=== PATIENT | male | born 1945 | race Caucasian/White ===

== ENCOUNTER → 2021-01-14 | Outpatient (CLI) | payer MEDICARE, OTHER ==
[2021-01-14 11:51] LABS: HCT 46.2 % (39.0-53.0); HGB 15.4 gm/dL (13.0-17.5); MCH 29.8 pg (25.0-35.0); MCHC 33.4 g/dL (31.0-37.0); MCV 89.2 fL (80.0-100.0); Mean Platelet Volume 9.1; Platelet Count 202 k/uL (150-450); RBC 5.17 m/uL (4.30-5.90); RDW 12.7 % (11.5-15.5); WBC 7.6 k/uL (3.8-10.6)
[2021-01-14 12:27] LABS: ALT 19 U/L (4-49); AST 29 U/L (17-59); African American GFR (CKD) >90 (>60 ml/min/1.73 sqM); Albumin 4.5 g/dL (3.5-5.0); Alkaline Phosphatase 105 U/L (38-126); Anion Gap 12 mmol/L; Blood Urea Nitrogen 16 mg/dL (9-20); Calcium 9.8 mg/dL (8.4-10.2); Carbon Dioxide 24 mmol/L (22-30); Chloride 103 mmol/L (98-107); Glucose 103 mg/dL (74-99); Non-African American GFR(CKD) >90 (>60 ml/min/1.73 sqM); Potassium 4.1 mmol/L (3.5-5.1); Sodium 139 mmol/L (137-145); Total Bilirubin 0.8 mg/dL (0.2-1.3); Total Protein 7.8 g/dL (6.3-8.2)
[2021-01-14 12:36] LABS: INR 0.9 (<1.2); Partial Thromboplastin Time 23.3 sec (22.0-30.0); Prothrombin Time 10.2 sec (9.0-12.0)
[2021-01-14 12:38] LABS: Appearance,Urine Clear (Clear); Bilirubin,Urine Negative (Negative); Blood,Urine Negative (Negative); Color,Urine Light Yellow; Glucose,Urine (UA) Negative (Negative); Ketones,Urine Negative (Negative); Leukocyte Esterase,Urine Negative (Negative); Nitrite,Urine Negative (Negative); Protein,Urine Negative (Negative); Specific Gravity,Urine 1.009 (1.001-1.035); Urobilinogen,Urine <2.0 mg/dL (<2.0)
== END | disposition home or self-care (01) ==
LOC: LABPAT 11:04
PROVIDERS: ATTEND Orthopaedic Surgery Sports Medicine
DX: Z01.818 Encounter for other preprocedural examination (principal); M17.12 Unilateral primary osteoarthritis, left knee; I49.1 Atrial premature depolarization
CPT/HCPCS: 80053; 81003; 85027; 85610; 85730; 87070; 93005

== ENCOUNTER 2021-01-22 08:20 | Day surgery (SDC) | payer MEDICARE, OTHER ==
[2021-01-19 15:15] VITALS: BMI 25.0
[~2021-01-22 08:20] MED LIST: ACETAMINOPHEN TAB 500 MG TAB PO PRN; DEXAMETHASONE SOD PHOSPHATE 4 MG/ML 1 ML VIAL IV ONE; GABAPENTIN 300 MG CAP PO PRN; HYDROmorphone 0.5 MG/0.5 ML SYRINGE IVP PRN; MELOXICAM 7.5 MG TAB PO PRN; MIDAZOLAM 2 MG/2 ML VIAL IV PRN; ONDANSETRON 4 MG/2 ML VIAL IVP ONE; ONDANSETRON 4 MG/2 ML VIAL IVP PRN; TRANEXAMIC ACID 1,000 MG in SODIUM CHLORIDE 0.9% 100 ML IVPB PRN
[2021-01-22] MEDS ORDERED: LIDOCAINE 1% (10MG/ML) FOR IV START INTRADERMA ONE (09:11)
[2021-01-22] MEDS: LACTATED RINGERS 1,000 ML IV SCH ×3 (09:11→21:31)
[2021-01-22] MEDS ORDERED: MAGNESIUM HYDROXIDE 2,400 MG/10 ML CUP PO PRN (10:37)
[2021-01-22] MEDS ORDERED: TEMAZEPAM 15 MG CAP PO PRN (10:37)
[2021-01-22] MEDS ORDERED: HYDROmorphone 0.5 MG/0.5 ML SYRINGE IVP PRN (10:37)
[2021-01-22] MEDS ORDERED: traMADol 50 MG TAB PO PRN (10:37)
[2021-01-22] MEDS ORDERED: diazePAM 5 MG TAB PO PRN (10:37)
[2021-01-22] MEDS ORDERED: ACETAMINOPHEN TAB 325 MG TAB PO PRN (10:37)
[2021-01-22] MEDS ORDERED: bisacodyL 10 MG SUPP RECTAL PRN (10:37)
[2021-01-22] MEDS ORDERED: HYDROmorphone 0.2 MG/1 ML SYRINGE IVP PRN (10:37)
[2021-01-22] MEDS ORDERED: NALOXONE 0.4 MG/ML 1 ML VIAL IV PRN (10:37)
[2021-01-22] MEDS ORDERED: NA PHOS,M-B/NA PHOS,DI-BA 133 ML ENEMA RECTAL PRN (10:37)
[2021-01-22] MEDS ORDERED: ONDANSETRON 4 MG/2 ML VIAL IVP PRN (10:37)
[2021-01-22] MEDS ORDERED: HYDROcodone/APAP 5-325MG 1 EACH TAB PO PRN (10:37)
[2021-01-22] MEDS ORDERED: TRANEXAMIC ACID 1,000 MG/10 ML VIAL ONE (10:55)
[2021-01-22] MEDS ORDERED: PROPOFOL 10 MG/ML 20 ML VIAL IV ONE (10:55)
[2021-01-22] MEDS ORDERED: GLYCOPYRROLATE 0.2 MG/ML 2 ML VIAL ONE (10:55)
[2021-01-22] MEDS ORDERED: fentaNYL (PF) 50 MCG/ML 2 ML AMP ONE (10:55)
[2021-01-22] MEDS ORDERED: ROPIVACAINE 5 MG/ML 30 ML VIAL ONE (10:55)
[2021-01-22] MEDS ORDERED: SODIUM CHLORIDE 0.9% 100 ML BAG ONE (10:55)
[2021-01-22] MEDS ORDERED: diphenhydrAMINE 50 MG/ML 1 ML VIAL ONE (10:55)
[2021-01-22] MEDS ORDERED: KETAMINE 10 MG/ML 20 ML VIAL ONE (10:55)
[2021-01-22] MEDS ORDERED: MIDAZOLAM 2 MG/2 ML VIAL ONE (10:55)
[2021-01-22] MEDS ORDERED: ceFAZolin 1,000 MG in SODIUM CHLORIDE 0.9% 1,000 ML IRRIGATION ONE (10:58)
[2021-01-22] MEDS ORDERED: LACTATED RINGERS 1,000 ML IV ONE (12:42)
[2021-01-22] MEDS ORDERED: ROPIVACAINE 0.2%-NS ON-Q PUMP 1,090 MG, EMPTY PAIN BALL 1 EACH MISCELLANE PRN (13:18)
--- NOTE | 2021-01-22 13:37 | P.ANPRN ---
Procedure Note - Anesthesia - Nerve Block Performed Left Adductor Canal Time Out Performed: Yes (:18) Date of Procedure: 01/22/21 Procedure Start Time: Procedure Stop Time: : Location of Patient: PreOp Indication: Acute Post-Operative Pain, Requested by Surgeon (Dr Jay) Sedation Type: Sedate with meaningful contact maintained Preparation: Sterile Prep, Sterile Dressing Position: Supine Catheter: Indwelling Needle Types: Pajunk Needle Gauge: 21 Ultrasound used to visualize needle placement: Yes Ultrasound used to observe medication spread: Yes Injectate: 0.5% Ropivacaine (see comment for volume) (17cc) Blood Aspirated: No Pain Paresthesia on Injection Noted: No Resistance on Injection: Normal Image Stored and Saved: Yes Events: Uneventful and Well Tolerated
--- NOTE | 2021-01-22 13:40 | P.ANPRN ---
Procedure Note - Anesthesia - Nerve Block Performed Left iPack Time Out Performed: Yes Date of Procedure: 01/22/21 Procedure Start Time: 09:34 Procedure Stop Time: 09:46 Location of Patient: PreOp Indication: Acute Post-Operative Pain, Requested by Surgeon (Dr Jay) Sedation Type: Sedate with meaningful contact maintained Preparation: Sterile Prep Position: Supine Catheter: None Needle Types: Pajunk Needle Gauge: 21 Ultrasound used to visualize needle placement: Yes Ultrasound used to observe medication spread: Yes Injectate: 0.5% Ropivacaine (see comment for volume) (15cc) Blood Aspirated: No Pain Paresthesia on Injection Noted: No Resistance on Injection: Normal Image Stored and Saved: Yes Events: Uneventful and Well Tolerated
--- NOTE | 2021-01-22 14:04 | XR ---
EXAMINATION TYPE: XR knee limited LT DATE OF EXAM: 01/22/2021 CLINICAL HISTORY: Postoperative evaluation Two views of the left knee are submitted. Identified are changes of total knee arthroplasty with fem oral and tibial components appearing well seated. Postsurgical soft tissue changes are noted. Align ment is anatomic.
[2021-01-22] MEDS: HYDROmorphone 0.5 MG/0.5 ML SYRINGE IVP PRN ×2 (14:30→17:29)
[2021-01-22] MEDS: HYDROcodone/APAP 10-325MG 1 EACH TAB PO PRN (15:07)
--- NOTE | 2021-01-22 16:48 | OP ---
OPERATIVE REPORT DATE OF PROCEDURE: 01/22/2021. SURGEON: Woody Jay M.D. LEATHER DRIER: Darwin Hicks PA-C. PREOPERATIVE DIAGNOSIS: Left knee osteoarthrosis. POSTOPERATIVE DIAGNOSIS: Left knee osteoarthrosis. OPERATION: Left total knee arthroplasty. ANESTHESIA: Spinal with sedation. ESTIMATED BLOOD LOSS: 100 mL. TOURNIQUET: Tourniquet time was 54 minutes at 250 mmHg. COMPLICATIONS: None apparent. DRAINS: None. DISPOSITION: Post-Anesthesia Care Unit INDICATIONS: Perfecto is a very pleasant 76-year-old male with a longstanding history of left knee pain. History and physical examination are consistent with advanced left knee osteoarthrosis. He has been through significant nonoperative management up to this point. Further treatment options were discussed. He has decided to go forward with left total knee arthroplasty. The risks of the procedure were discussed with him in detail. These risks included but were not limited to risk of infection, nerve damage, bleeding, pain, and a small risk of deep vein thrombosis which could lead to fatal pulmonary embolism. There was also a risk of loosening of the implant which could require revision operation. The patient understands these risks. All of his questions were answered to his satisfaction. Appropriate informed consent was obtained. DESCRIPTION OF THE PROCEDURE: The patient was identified in the preoperative holding area. Surgical site was marked by both the patient and myself. He was given 2 grams of Ancef IV for prophylactic purposes. He was then transferred to the operative suite. He was placed supine on the operating room table. Spinal anesthetic was then administered and dosed per the anesthesia department without apparent complication. Examination under anesthesia was then performed. The patient was 2-3 degrees shy of full extension. He had 100 degrees of flexion, and the medial collateral ligament, lateral collateral ligament and posterior cruciate ligaments were stable. Tourniquet was then placed high on the left upper thigh, well padded in preparation for surgery. The patient's left lower extremity was then prepped and draped in the usual sterile fashion. A standard surgical pause was undertaken to ensure that we were operating on the correct site and that appropriate preoperative antibiotics had been given. All staff in the room were in agreement and we proceeded. The outlines of the patella were marked with a surgical pen. A planned 12 cm vertical incision centered over the patella was marked with a surgical pen. The leg was then exsanguinated with an Esmarch dressing. The knee was then flexed and the tourniquet was inflated to 250 mmHg. The total tourniquet time for the procedure was 54 minutes. Incision was then made with a 10 blade scalpel. Dissection was carried down sharply to the overlying fascia. Great care was taken to minimize the skin flaps. The knee was then exposed using a standard medial parapatellar approach. A small cuff of quadriceps tendon was then left for suturing. He was in quite a bit of varus preoperatively. A standard medial release was then made. The superficial medial collateral ligament was dissected off of the bone around to the posterior aspect of the proximal tibia. The medial meniscus was then excised as well. The lateral meniscus was also released anteriorly. The leg was then externally rotated. The patella was everted. The knee was flexed. Retractors were then placed to protect the collateral ligaments. I then proceeded to remove the infrapatellar fat pad. This was excised sharply tangentially with the fibers of the patellar tendon. I then proceeded to remove the peripheral osteophytes. This was done with a rongeur. I then proceeded with the distal femoral resection. He did have near-full extension. A planned 9 mm resection was then done. The femoral canal was then entered in the midline of the femur approximately 10 mm anterior to the origin of the posterior cruciate ligament. The rudy was then advanced down the center of the femur and placed intramedullary. Based on the preoperative radiographs, the angle between the anatomic and mechanical axis of the femur was approximately 4-5 degrees. The valgus angle of the distal femoral cutting guide was then set at 4 degrees for the left knee. The distal femoral cutting guide was then advanced over the intramedullary rudy. This was seated firmly against the femur. I then, as mentioned, planned to take 9 mm off the distal femur. The cutting block was then secured onto the femur with pins. The jig was then removed, and the distal femoral cut was made through the slot of the block. The pins were then removed and the distal femoral cutting was removed. The accuracy of the distal femoral cuts was checked with 2 flat bars. I then proceeded with femoral sizing. The posterior referencing sizing guide was held firmly against the resected distal surface of the femur. The posterior condyles were resting on the posterior plane of the guide. The sizing guide was then placed onto the anterior femur. The size was measured as a size 9. I then assessed for femoral rotation. The plan was for 3 degrees of external rotation. Three degrees of external rotation was placed onto the jig. These holes were then marked. I then confirmed the rotation by 3 separate methods. This was done using epicondylar axis as well as Whitesides line and posterior referencing. It was deemed that the external rotation was proper. I then went forward with placing the femoral cutting block. This was placed over the previously placed pin holes. The Pastor wing was then placed onto the anterior slots to ensure that we would not notch the anterior femur with the anterior femoral cut. I then proceeded with the anterior femoral cut. This was flush with the anterior cortex of the femur. The posterior cuts were then made followed by the anterior chamfer cut and then the posterior chamfer cut. The cutting block was then removed. Throughout the resection, the collateral ligaments were protected with retractors. I then placed a trial size 9 femur. It fit very nicely medial to lateral and fit flush with the distal end of the femur. The drill holes were then made. I then proceeded with the tibial cut. I planned for a cruciate-retaining knee. The guide was placed and set for varus, valgus, and for slope. The height was set for an approximate 2 mm resection from the medial tibial plateau, which was the lower side. I was happy with the alignment and amount of resection. The cutting block was then pinned to the proximal tibia. The alignment rudy was removed and the proximal tibia was resected with a reciprocating saw. Again this was done with retractors protecting the collateral ligaments as well as the posterior cruciate ligament. I then proceeded to evaluate the flexion and extension gaps. A 10 mm block was then placed. The flexion and extension gaps were equal. I then proceeded with resection of the posterior osteophytes. He had very minimal posterior osteophytes. This was done with a curved osteotome. This resected the posterior osteophytes, and posterior capsule stripping was done off the posterior aspect of the femur at this time. The osteophytes were then removed. I then proceeded with resection of the patella. The thickness of the patella was measured using the caliper. The thickness was 24 mm. The thickness of the anticipated patellar dome was taken into account. Resection was then performed and confirmed to be equal in 4 quadrants using a caliper. Approximately 14 mm of bone remained after the resection. A 32 x 8.5 mm standard patellar trial was then placed. The holes were drilled and the trial was then placed. I then proceeded with sizing the tibial plate. A size F tibial plate fit very nicely. I then placed the trial femur, the tibial tray and the patellar button. A 10 mm trial insert was then also placed. The components fit very nicely. He had full extension and flexion. The extension and flexion gaps were equal and stable to both varus and valgus stress. The patella tracked appropriately. Tibial tray rotation was then marked with a Bovie. This was externally rotated properly. I then proceeded with tibial preparation. First I drilled the femoral holes and removed the femoral component. The tibial tray was then set for proper external rotation as well as mediolateral placement onto the tibia. This was then pinned into place. I then proceeded with punching the keel. I then decided to proceed with cementing of all of our components. The knee was thoroughly irrigated with sterile saline solution via pulse lavage. The lateral geniculate artery was identified and cauterized. All blood was removed from the bone of the tibia, femur and patella with pulse lavage. I then proceeded with cementing. Two packs of antibiotic bone cement were prepared on the back table by the operating room surgical technologist. I then proceeded with cementing of the tibia first. The cement was impacted into the keel as well as deeply seated into the bone. A second coat of cement was then placed. The tibia was then impacted into place. Excess cement was removed with Ivan's and jokers. I then proceeded with cementing of the femoral component. The femoral component was also cemented using standard technique. Excess cement was removed. A 10 mm trial insert was then placed into the knee. It was brought into full extension with a constant axial load placed until the cement had hardened. The patellar component was then cemented. This was held firmly with a compressive device until the cement had dried. When the cement had dried, the knee was taken out of extension. All excess cement was removed from around the prosthesis. I then trialed the knee with a 10 mm insert. Flexion and extension gaps were appropriate. I then trialed with a 12 mm insert. Flexion and extension gaps felt a little better. The knee was stable with a 12 mm insert. It came into full extension. I decided to go forward with a 12 mm medial- congruent, cross-linked, cruciate-retaining tibial insert. Polyethylene was then placed onto the tibial tray and locked into place. The knee was then reduced. The knee was again further irrigated with sterile saline solution with antibiotic added. The tourniquet was then deflated. Total tourniquet time for the procedure was 54 minutes at 250 mmHg. Final components were a Peter Persona size 9 cruciate-retaining femoral component, a size F tibial tray, a 12 mm medial-congruent, cruciate-retaining polyethylene insert, and a 32 x 8.5 mm patella. I then proceeded with closure. Again the knee was thoroughly irrigated. The quadriceps tendon and the medial retinaculum were reapproximated with a #2 Ethibond suture. The extensor mechanism was then closed with a running #2 Quill suture. Subcutaneous tissues were closed with 2-0 Vicryl interrupted suture. The skin was closed with running 3-0 Quill suture. Dermabond was applied to the incision. Sterile compressive dressings were then applied. All sponge and needle counts were deemed correct prior to closure. The patient tolerated the procedure without apparent complication. He was transferred to the recovery room in stable condition. MMODL / IJN: [id number] /
[2021-01-22] MEDS ORDERED: ATORVASTATIN 10 MG TAB PO SCH (21:00)
[2021-01-22] MEDS ORDERED: SENNOSIDES-DOCUSATE SODIUM 1 EACH TAB PO SCH (21:00)
[2021-01-22] MEDS: ASPIRIN 81 MG PO SCH (21:32)
[2021-01-22] MEDS: LIPASE 5,000/PROTEASE 17,000/AMYLASE 24,000 PO SCH (21:33)
[2021-01-22] MEDS: DICYCLOMINE 10 MG CAP PO SCH (21:33)
[2021-01-22] MEDS: BALSALAZIDE DISODIUM 750 MG CAPSULE PO SCH (21:34)
--- NOTE | 2021-01-22 23:42 | P.CONS ---
History of Present Illness - Reason for Consult Consult date: 01/22/21 Medical management Requesting physician: Woody Jay - Chief Complaint Left knee surgery - History of Present Illness This is a pleasant 76-year-old patient who follows with . Chronic stable medical conditions include hyperlipidemia, hypertension, radiation colitis. Patient is undergoing left total knee arthroplasty. Pain control. No nausea vomiting. Did tolerate some supper. No chest pain or shortness of breath. At her baseline patient is bowel movements. Did be any failure from 1- 10 times a day. Review of systems: GEN.: Tired EYES: None HEENT: None NECK: None RESPIRATORY: None CARDIOVASCULAR: None GASTROINTESTINAL: As above GENITOURINARY: None MUSCULOSKELETAL: As above LYMPHATICS: None HEMATOLOGICAL: None PSYCHIATRY: None NEUROLOGICAL: None Past medical history to include: Hyperlipidemia, hypertension, osteoarthritis, prostate cancer 2005. Had surgery mutation. Radiation colitis. Social history: . . 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 Patient stopped smoking in 1980. Alcohol occasionally. Family history: Reviewed, noncontributory to presentation Physical examination: VITAL SIGNS: 97.6, 51, 17, 122/70, 93% room air GENERAL: BMI 25.8, laying in bed, awake comfortable. EYES: Pupils equal. Conjunctiva normal. HEENT: External appearance of nose and ears normal, oral cavity grossly normal. NECK: JVD not raised; masses not palpable. HEART: First and second heart sounds are normal; no edema. LUNGS: Respiratory rate normal; clear to auscultation. ABDOMEN: Soft, nontender, liver spleen not palpable, no masses palpable. PSYCH: Alert and oriented x3; mood and affect normal. MUSCULAR skeletal: Evidence of OA. Dressing with Wiliam wrap on the left knee. NEUROLOGICAL: Cranial nerves grossly intact; no facial asymmetry, power and sensation grossly intact. LYMPHATICS: No lymph nodes palpable in the axilla and neck INVESTIGATIONS, reviewed in the clinical context: Coronavirus [PCR] called not detected [01/14/2021]: WBC 7.6 hemoglobin 15.4 platelets 202 sodium 139 potassium 4.1 creatinine 0.75 Assessment and plan: -Left total knee arthroplasty. On aspirin for DVT prophylaxis. Pain control in place. -Radiation colitis OnColazal. Baseline patient anywhere from 1-10 BMs a day. -Primary osteoarthritis multiple joints bilaterally Pain medications as needed -Essential hypertension Norvasc 10 mg daily -Hyperlipidemia Mevacor 40 mg daily at bedtime -Bowel spasms Mental 10 mg by mouth twice a day Home medications resumed. Care was discussed with the patient. Activity as tolerated. Aspirin for DVT prophylaxis. Pain control in place. Thank you Dr. Jay Past Medical History Past Medical History: Cancer, Hyperlipidemia, Hypertension, Osteoarthritis (OA), Prostate Disorder Additional Past Medical History / Comment(s): Cancer prostate 2006 est, 2010 est - had surg, radiation. Hx colitis. History of Any Multi-Drug Resistant Organisms: None Reported Past Surgical History: Prostate Surgery Additional Past Surgical History / Comment(s): Colonoscopy Past Anesthesia/Blood Transfusion Reactions: No Reported Reaction Past Psychological History: No Psychological Hx Reported Additional Psychological History / Comment(s): lives with his . Served in [place]. No smoking and travel since. Pet dogs in the home. Reformed smoker. Denies injection drug use, alcohol use or marijuana use. 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 Smoking Status: Former smoker Past Alcohol Use History: Occasional Additional Past Alcohol Use History / Comment(s): smoked in past, quit 1980 Past Drug Use History: None Reported - Past Family History Mother Family Medical History: No Reported History Additional Family Medical History / Comment(s): lived to age 97 Father Family Medical History: Cancer Additional Family Medical History / Comment(s): leukemia, lived to age 85 Medications and Allergies Home Medications Medication Instructions Recorded Confirmed Type Aspirin [Adult Low Dose Aspirin EC] 81 mg PO DAILY 10/20/17 01/19/21 History Cholecalciferol [Vitamin D3] 25 mcg PO DAILY 10/20/17 01/19/21 History Glucosamine Sulfate 1,000 mg PO DIRECTED 10/20/17 01/19/21 History Lovastatin [Mevacor] 40 mg PO HS 10/20/17 01/19/21 History Mesalamine [Lialda] 1.2 gm PO BID 10/20/17 01/19/21 History amLODIPine BESYLATE [Norvasc] 10 mg PO DAILY 10/20/17 01/19/21 History Dicyclomine [Bentyl] 10 mg PO BID 01/19/21 01/19/21 History Lipase/Protease/Amylase [Stewart Mc 12,000 units PO BID 01/19/21 01/19/21 History 12,000 Units Capsule] Vitamin E (Dl,Tocopheryl Acet) 400 unit PO DAILY 01/19/21 01/19/21 History [Vitamin E (400 Iu = 180 mg)] Allergies Allergy/AdvReac Type Severity Reaction Status Date / Time No Known Allergies Allergy Verified 01/19/21 14:48 Physical Exam Vitals: Vital Signs Temp Pulse Resp BP Pulse Ox 01/22/21 19:18 97.6 F 51 L 17 122/70 93 L 01/22/21 15:50 65 124/63 01/22/21 15:35 67 121/85 01/22/21 15:20 54 L 124/65 01/22/21 15:05 52 L 113/69 94 L 01/22/21 14:50 56 L 126/76 96 01/22/21 14:35 55 L 120/66 94 L 01/22/21 14:20 97.5 F L 55 L 136/68 94 L 01/22/21 13:58 61 16 140/69 96 01/22/21 13:43 60 16 144/77 96 01/22/21 13:28 59 L 16 143/71 96 01/22/21 13:13 64 16 140/68 95 01/22/21 12:58 96.4 F L 53 L 16 146/72 100 01/22/21 09:53 65 16 132/67 98 01/22/21 08:59 97.0 F L 68 16 181/78 97 Intake and Output 01/22/21 01/22/21 01/23/21 14:59 22:59 06:59 Intake Total 1351 Output Total 100 Balance 1251 Intake: IV 1351 Output: Estimated Blood Loss 100 Other: # Voids 1 Weight 76.9 kg
[2021-01-23] MEDS: HYDROcodone/APAP 10-325MG 1 EACH TAB PO PRN ×2 (01:32→08:03)
[2021-01-23] MEDS: LACTATED RINGERS 1,000 ML IV SCH ×2 (07:35)
--- NOTE | 2021-01-23 07:44 | P.PN ---
Progress Note - Text The patient is status post left adductor canal catheter placement. The catheter was placed for postoperative pain control, status post total left arthroplasty. Ropivacaine 0.2% is infusing at 8 mLs per hour. The patient has no complaints of left lower extremity numbness or weakness. Patient's VAS score is 3-4 -10. His pain is located in the suprapatellar area. Assessment: Patient's adductor canal catheter is in place and working appropriately. Plan: continue infusion and adjust it as needed.
[2021-01-23] MEDS: BALSALAZIDE DISODIUM 750 MG CAPSULE PO SCH (07:52)
[2021-01-23] MEDS: ASPIRIN 81 MG PO SCH (07:52)
[2021-01-23] MEDS: DICYCLOMINE 10 MG CAP PO SCH (07:52)
[2021-01-23] MEDS: LIPASE 5,000/PROTEASE 17,000/AMYLASE 24,000 PO SCH (07:53)
[2021-01-23] MEDS ORDERED: VITAMIN E (DL,TOCOPHERYL ACET) 400 UNIT (180 MG) CAP PO SCH (09:00)
[2021-01-23] MEDS ORDERED: amLODIPine 10 MG TAB PO SCH (09:00)
[2021-01-23] MEDS ORDERED: CHOLECALCIFEROL 25 MCG (1000 IU) TABLET PO SCH (09:00)
[2021-01-23 09:49] VITALS: BP 121/64; PULSE 57; RESP 16; TEMP 98.7
[2021-01-23 10:11] LABS: Basophils # (A) 0.02 X 10*3/uL (0.00-0.10); Basophils % (A) 0.1 %; Eosinophils # (A) 0 X 10*3/uL (0.04-0.35); Eosinophils % (A) 0 %; HCT 37.7 % (39.6-50.0); HGB 12.3 g/dL (13.0-17.0); Lymphocytes # (A) 1.34 X 10*3/uL (0.90-5.00); Lymphocytes % (A) 9.9 %; MCHC 32.6 g/dL (32.0-37.0); MCV 88.9 fL (80.0-97.0); Mean Platelet Volume 12.1 fL (9.5-12.2); Monocytes # (A) 1.45 X 10*3/uL (0.20-1.00); Monocytes % (A) 10.7 %; Neutrophils # (A) 10.63 X 10*3/uL (1.80-7.70); Neutrophils % (A) 78.8 %; Platelet Count 203 X 10*3/uL (140-440); RBC 4.24 X 10*6/uL (4.40-5.60); RDW 12.8 % (11.5-14.5); WBC 13.51 X 10*3/uL (4.50-10.00)
--- NOTE | 2021-01-23 10:57 | P.DS ---
Providers Expected date of discharge: 01/23/21 Attending physician: Woody Jay Consults: 01/22/21 10:37 Consult Physician Routine Consulting Provider: Milad Ly Consult Reason/Comments: post op medical management Do you want consulting provider notified?: Yes Primary care physician: Lalitha Mcdaniel - Discharge Diagnosis(es) (1) Osteoarthritis of left knee Patient was admitted to the OR on 01/22/21 to undergo a left total knee arthroplasty. He had failed conservative measures as an outpatient and desired to proceed with elective surgery after given informed consent. He underwent the above procedure which he tolerated well without complication. Postoperative hospital course has remained without complication. On day of discharge he is afebrile, vital signs stable, labs within acceptable ranges, tolerating by mouth meds and diet, voiding without difficulty, positive flatus, denies abdominal pain or calf pain, pain is controlled on oral pain medication and has no new complaints. Wound is benign, neurovascular status is intact, calf is soft and nontender, abdomen soft and nontender. Review of systems is negative for numbness, tingling, fever, chills, chest pain, shortness of breath, nausea, vomiting, dizziness, headaches, slurred speech or other. Current Visit: Yes Status: Acute Priority: Medium Procedures: Left TKA Patient Condition at Discharge: Good Plan - Discharge Summary Discharge Rx Participant: No New Discharge Prescriptions: New Aspirin [Adult Low Dose Aspirin EC] 81 mg PO BID #60 tab Docusate [Colace] 100 mg PO BID #60 cap HYDROcodone/APAP 7.5-325MG [[place] 7.5-325] 1 - 2 each PO Q6HR PRN #42 tab PRN Reason: Pain No Action Glucosamine Sulfate 1,000 mg PO DIRECTED Aspirin [Adult Low Dose Aspirin EC] 81 mg PO DAILY Mesalamine [Lialda] 1.2 gm PO BID Cholecalciferol [Vitamin D3] 25 mcg PO DAILY amLODIPine BESYLATE [Norvasc] 10 mg PO DAILY Lovastatin [Mevacor] 40 mg PO HS Lipase/Protease/Amylase [Creon Dr 12,000 Units Capsule] 12,000 units PO BID Vitamin E (Dl,Tocopheryl Acet) [Vitamin E (400 Iu = 180 mg)] 400 unit PO DAILY Dicyclomine [Bentyl] 10 mg PO BID Discharge Medication List Aspirin [Adult Low Dose Aspirin EC] 81 mg PO DAILY 10/20/17 [History] Cholecalciferol [Vitamin D3] 25 mcg PO DAILY 10/20/17 [History] Glucosamine Sulfate 1,000 mg PO DIRECTED 10/20/17 [History] Lovastatin [Mevacor] 40 mg PO HS 10/20/17 [History] Mesalamine [Lialda] 1.2 gm PO BID 10/20/17 [History] amLODIPine BESYLATE [Norvasc] 10 mg PO DAILY 10/20/17 [History] Dicyclomine [Bentyl] 10 mg PO BID 01/19/21 [History] Lipase/Protease/Amylase [Stewart Mc 12,000 Units Capsule] 12,000 units PO BID 01/19/21 [History] Vitamin E (Dl,Tocopheryl Acet) [Vitamin E (400 Iu = 180 mg)] 400 unit PO DAILY 01/19/21 [History] Aspirin [Adult Low Dose Aspirin EC] 81 mg PO BID #60 tab 01/23/21 [Rx] Docusate [Colace] 100 mg PO BID #60 cap 01/23/21 [Rx] HYDROcodone/APAP 7.5-325MG [[place] 7.5-325] 1 - 2 each PO Q6HR PRN #42 tab 01/23/21 [Rx] Follow up Appointment(s)/Referral(s): [facility], [NON-STAFF] - ([facility] will call you to schedule your home physical therapy visits. ) Woody Jay MD [STAFF PHYSICIAN] - 02/03/21 9:35 am Activity/Diet/Wound Care/Special Instructions: Keep wound clean and dry Take meds as directed Follow-up with Dr. Jay in office Weight bear as tolerated May shower in 3 days if no bleeding Discharge Disposition: HOME WITH HOME HEALTH SERVICES
[2021-01-23] MEDS ORDERED: MULTIVITAMINS, THERA 1 EACH TAB PO SCH (12:00)
--- NOTE | 2021-01-23 17:33 | P.PN ---
Progress Note - Text Progress Note Date: 01/23/21 - Chief Complaint Left knee surgery This is a pleasant 76-year-old patient who follows with . Chronic stable medical conditions include hyperlipidemia, hypertension, radiation colitis. Patient is undergoing left total knee arthroplasty. Pain control. No nausea vomiting. Did tolerate some supper. No chest pain or shortness of breath. At her baseline patient is bowel movements. BMs from 1-10 times a day. January 23: Comfortable. Pain control. Up to the bathroom. No nausea vomiting. Did tolerate some breakfast. Feeling good. Care was discussed with the patient. Review of systems: Was done for constitutional, cardiovascular, GI, pulmonary. relevant finding as above Current medications reviewed in today's electronic records Past medical history to include: Hyperlipidemia, hypertension, osteoarthritis, prostate cancer 2005. Had surgery mutation. Radiation colitis. Social history: . . 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 Patient stopped smoking in 1980. Alcohol occasionally. Family history: Reviewed, noncontributory to presentation Physical examination: VITAL SIGNS: 98.7, 57, 16, 121/64, 95% room air GENERAL: Sitting up, comfortable EYES: Pupils equal. Conjunctiva normal. HEENT: External appearance of nose and ears normal, oral cavity grossly normal. NECK: JVD not raised; masses not palpable. HEART: First and second heart sounds are normal; no edema. LUNGS: Respiratory rate normal; clear to auscultation. ABDOMEN: Soft, nontender, liver spleen not palpable, no masses palpable. PSYCH: Alert and oriented x3; mood and affect normal. MUSCULAR skeletal: Evidence of OA. Dressing with Wiliam wrap on the left knee. INVESTIGATIONS, reviewed in the clinical context: January 23: White count 13.5 hemoglobin 12.3 Coronavirus [PCR] called not detected [01/14/2021]: WBC 7.6 hemoglobin 15.4 platelets 202 sodium 139 potassium 4.1 creatinine 0.75 Assessment and plan: -Left total knee arthroplasty. On aspirin for DVT prophylaxis. Pain control in place. -Acute postprocedure blood loss anemia, as expected -Reactive leukocytosis from surgery. No clinical evidence of infection -Radiation colitis OnColazal. Baseline patient anywhere from 1-10 BMs a day. -Primary osteoarthritis multiple joints bilaterally Pain medications as needed -Essential hypertension Norvasc 10 mg daily -Hyperlipidemia Mevacor 40 mg daily at bedtime -Bowel spasms Mental 10 mg by mouth twice a day Medically stable. Care was discussed with the patient. Follow-up with PCP upon discharge. Thank you Dr. Jay
== END 2021-01-23 12:33 | disposition home health service (06) ==
LOC: OR 08:20 → 4SSUR 12:38 → OR 01-23 12:33
PROVIDERS: ATTEND Orthopaedic Surgery Sports Medicine
DX: M17.12 Unilateral primary osteoarthritis, left knee (principal); M25.762 Osteophyte, left knee; D50.0 Iron deficiency anemia secondary to blood loss (chronic); D72.828 Other elevated white blood cell count; Z20.822 Contact with and (suspected) exposure to COVID-19; E78.5 Hyperlipidemia, unspecified; I10 Essential (primary) hypertension; K52.0 Gastroenteritis and colitis due to radiation; H91.90 Unspecified hearing loss, unspecified ear; K58.9 Irritable bowel syndrome, unspecified; Z97.3 Presence of spectacles and contact lenses; Z87.891 Personal history of nicotine dependence; Z85.46 Personal history of malignant neoplasm of prostate; Z90.79 Acquired absence of other genital organ(s); Z98.42 Cataract extraction status, left eye; Z98.41 Cataract extraction status, right eye; Z98.890 Other specified postprocedural states; Z79.899 Other long term (current) drug therapy
CPT/HCPCS: 97161; 64999; 64448; 76942; 88305; 85025; 88311; 87635; 73560; 27447; C1776; J2250; J1200; J1100; J0690 ×3; J2405; J3010; J2795; J2704; J1170